=== PATIENT | female | born 1970 ===

== ENCOUNTER 2020-01-31 09:23 | Observation (INO) | payer BC ==
[2020-01-31 13:15] VITALS: BMI 39.0
[2020-02-01 10:08] VITALS: TEMP 97
[2020-02-01 10:15] VITALS: O2SAT 98
[2020-02-01 10:38] VITALS: BP 115/80
== END 2020-02-01 11:55 | disposition home or self-care (01) ==
LOC: INTOOBSV 09:36 → 2ND 09:36
PROVIDERS: ADMIT Family Medicine; ATTEND Family Medicine
PROC: 0WQF4ZZ Repair Abdominal Wall, Percutaneous Endoscopic Approach (ICD-10-PCS; principal; 2020-01-31)
DX: K43.6 Other and unspecified ventral hernia with obstruction, without gangrene (principal); I10 Essential (primary) hypertension; K21.9 Gastro-esophageal reflux disease without esophagitis; E66.9 Obesity, unspecified; J30.2 Other seasonal allergic rhinitis; Z68.39 Body mass index [BMI] 39.0-39.9, adult; Z98.84 Bariatric surgery status
CPT/HCPCS: 36415; 80053; 83735; 84100; 85025; 88302; C1781; G0378; G0379; J1100; J1170; J1650; J2250; J2405; J2543; J2704; J3010; J7030; J7120